=== PATIENT | male | born 1995 | race American Indian/Alaskan Native ===

== ENCOUNTER 2020-05-03 20:47 | Emergency (ER) | payer BC ==
[2020-05-03] MEDS ORDERED: HYDROcodone/ACETAMINOPHEN 5-325 MG TAB PO ONE (22:24)
[2020-05-03] MEDS ORDERED: IBUPROFEN 600 MG TAB PO ONE (22:24)
[2020-05-03] MEDS ORDERED: ONDANSETRON 4 MG ODT TAB PO ONE (22:24)
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
[2020-05-04 00:37] VITALS: BP 127/74
== END 2020-05-04 00:01 | disposition home or self-care (01) ==
LOC: ED 20:47
DX: M62.830 Muscle spasm of back (principal); M54.2 Cervicalgia; M54.5 Low back pain; R51.9 Headache, unspecified; Z79.1 Long term (current) use of non-steroidal anti-inflammatories (NSAID); Z79.899 Other long term (current) drug therapy; V49.49XA Driver injured in collision with other motor vehicles in traffic accident, initial encounter; W22.10XA Striking against or struck by unspecified automobile airbag, initial encounter; Y93.89 Activity, other specified; Y92.410 Unspecified street and highway as the place of occurrence of the external cause; Y99.8 Other external cause status
CPT/HCPCS: 70450; 72125; 72131; Q0162